=== PATIENT | male | born 1965 | race Caucasian/White ===

== ENCOUNTER 2017-01-13 15:12 | Emergency (ER) | payer OTHER ==
[~2017-01-13] VITALS: Ht 172.7 cm; Wt 89.5 kg
[2017-01-13 15:17] VITALS: Ht 172.7 cm; Wt 89.5 kg
--- NOTE | 2017-01-13 15:25 | ERA ---
ER Documentation Chief Complaint Date/Time DATE: 01/13/17 TIME: 15:25 Chief Complaint palpitations sent from pmd's office HPI The patient is a 52-year-old male, presenting to the ER because palpitation for 2 days. He stopped drinking about 2 days ago. He denies fever, chills, syncope , near syncope, neck pain, chest pain, abdominal pain, vomiting, dysuria, diarrhea. He went to see his doctor who sent him to the ER because of palpitation. He smokes and drinks denies illicit drug Past medical history: Hypertension, chronic low back pain, sleep apnea Past surgical history: None ROS All systems reviewed and are negative except as per history of present illness. Medications Home Meds No Active Prescriptions or Reported Meds Allergies Allergies: Coded Allergies: No Known Allergy (Unverified , 01/13/17) Physical Exam Vitals Vital Signs Date Time Temp Pulse Resp B/P Pulse Ox O2 Delivery O2 Flow Rate FiO2 01/13/17 15:44 Nasal Cannula 2 01/13/17 15: 99.5 161 24 153/92 98 Physical Exam Const: No acute distress. Head: Atraumatic. Eyes: Normal Conjunctiva. ENT: Normal External Ears, Nose and Mouth. Neck: Full range of motion. No meningismus. Resp: Clear to auscultation bilaterally. Cardio: Regular Tachycardic Abd: Soft, non distended, normal bowel sounds, non tender. Skin: No petechiae or rashes. Back: No midline or flank tenderness. Ext: No cyanosis, or edema. Neur: Awake and alert. No focal deficit Psych: Normal Mood and Affect. Result Diagram: 01/13/17 1530 01/13/17 1530 Results 24 hrs Laboratory Tests Test 01/13/17 15:30 01/13/17 17:20 White Blood Count 10.710^3/ul Red Blood Count 3.8710^6/ul Hemoglobin 15.8g/dl Hematocrit 44.8% Mean Corpuscular Volume 115.8fl Mean Corpuscular Hemoglobin 40.8pg Mean Corpuscular Hemoglobin Concent 35.3g/dl Red Cell Distribution Width 14.1% Platelet Count 82699^3/UL Mean Platelet Volume 10.7fl Neutrophils % 84.0% Lymphocytes % 9.0% Monocytes % 5.7% Eosinophils % 0.2% Basophils % 0.5% Nucleated Red Blood Cells % 0.2/100WBC Neutrophils # 9.010^3/ul Lymphocytes # 1.010^3/ul Monocytes # 0.610^3/ul Eosinophils # 0.010^3/ul Basophils # 0.110^3/ul Nucleated Red Blood Cells # 0.010^3/ul Prothrombin Time 13.5Sec Prothrombin Time Ratio 1.1 INR International Normalized Ratio 1.03 Activated Partial Thromboplast Time 29.3Sec Sodium Level 137mmol/L Potassium Level 4.1mmol/L Chloride Level 100mmol/L Carbon Dioxide Level 17mmol/L Anion Gap 24 Blood Urea Nitrogen 7mg/dl Creatinine 0.79mg/dl Glucose Level 110mg/dl Calcium Level 9.7mg/dl Magnesium Level 1.3mg/dl Total Bilirubin 1.2mg/dl Direct Bilirubin 0.10mg/dl Indirect Bilirubin 1.1mg/dl Aspartate Amino Transf (AST/SGOT) 109IU/L Alanine Aminotransferase (ALT/SGPT) 44IU/L Alkaline Phosphatase 158IU/L Troponin I < 0.012ng/ml Total Protein 8.8g/dl Albumin 4.8g/dl Globulin 4.00g/dl Albumin/Globulin Ratio 1.20 Lipase 379U/L Thyroid Stimulating Hormone (TSH) 5.570MIU/L Ethyl Alcohol Level < 10.0mg/dl Urine Opiates Screen Negative Urine Barbiturates Negative Urine Amphetamines Screen Negative Urine Benzodiazepines Screen Negative Urine Cocaine Screen Negative Urine Cannabinoids Negative Current Medications Medications (Trade) Dose Ordered Sig/Luis Route PRN Reason Start Time Stop Time Status Last Admin Dose Admin Lorazepam (Ativan) 1 mg ONCE ONCE IV 01/13/17 16:00 01/13/17 16:01 DC 01/13/17 16:13 Clonidine 0.2 mg 0.2 mg ONCE ONCE PO 01/13/17 16:00 01/13/17 16:01 DC 01/13/17 16:13 Magnesium Sulfate (Magnesium Sulfate 2 Gm/50 ml) 50 ml @ 25 mls/hr ONCE ONCE IVPB 01/13/17 17:00 01/13/17 18:59 DC 01/13/17 17:29 Procedures/[place] [id number] Radiology Main Line: [phone] DIAGNOSTIC IMAGING REPORT Patient: ENMANUEL ENAMORADO : 1965 Age: 52 Sex: M MR #: [id number] DOS: 01/13/17 1532 Ordering MD: SALLY SARAH MD Location: E/R Room/Bed: PROCEDURE: XR Chest. CLINICAL INDICATION: chest pain TECHNIQUE: Single frontal view of the chest was obtained COMPARISON: None FINDINGS: The heart and mediastinum are within normal limits. The lungs are clear. There is no pleural effusion or pneumothorax. RPTAT: AA IMPRESSION: No acute disease. .Tyler Martinez MD, MD Date Time Electronically viewed and signed by .Tyler Martinez MD, MD on 01/13/2017 16: 02 .S/ CC: SALLY SARAH MD EKG: At 1515 hrs. Read by emergency physician Rate/Rhythm: Sinus tachycardia 151 beats/min QRS, ST, T-waves: No ST elevation, no T inversion, Nonspecific ST abnormality Impression: Abnormal EKG EKG: At 1554 hour Read by emergency physician Rate/Rhythm: Sinus tachycardia 136 beats/min QRS, ST, T-waves: No ST elevation, no T inversion Impression: Abnormal EKG MEDICAL MAKING DECISION: The patient is a 52-year-old male, presenting with acute alcohol withdrawal, acute hypomagnesemia. He was treated with Ativan 1 mg IV and clonidine 0.2 mg p.o. for acute alcohol withdrawal, magnesium sulfate 2 g IV for acute hypomagnesemia with good response The differential diagnoses considered include but are not limited to asthma, COPD, pneumonia, pulmonary embolus, pleural effusion, congestive heart failure. Departure Diagnosis: Primary Impression: Alcohol withdrawal Additional Impression: Hypomagnesemia Condition: Stable Comments I discussed the findings with the patient. I discussed the patient with his physician Dr Gaitan at 6 pm. who was made aware of the lab, the treatment, the patient condition. The patient is admitttransfer via ambulance to [facility] SALLY SARAH MD Jan 13, 2017 15:25
[2017-01-13] MEDS ORDERED: LORAZEPAM 2 MG INJ IV ONE (16:00)
--- NOTE | 2017-01-13 16:02 | RADRPT ---
PROCEDURE: XR Chest. CLINICAL INDICATION: chest pain TECHNIQUE: Single frontal view of the chest was obtained COMPARISON: None FINDINGS: The heart and mediastinum are within normal limits. The lungs are clear. There is no pleural effusion or pneumothorax. RPTAT: AA IMPRESSION: No acute disease. .Tyler Martinez MD, Date Time Electronically viewed and signed by .Tyler Martinez MD, on 01/13/2017 16:02 .S/
[2017-01-13 16:07] LABS: BASOPHIL # 0.1 10^3/ul (0.0-0.1); BASOPHILS % 0.5 % (0.0-2.0); EOSINOPHILS % 0.2 % (0.0-7.0); HEMATOCRIT 44.8 % (42.0-52.0); HEMOGLOBIN 15.8 g/dl (14.0-18.0); MEAN CORPUSCULAR HEMOGLOBIN 40.8 pg (29.0-33.0); MEAN CORPUSCULAR HGB CONC 35.3 g/dl (32.0-37.0); MEAN CORPUSCULAR VOLUME 115.8 fl (82.0-101.0); MEAN PLATELET VOLUME 10.7 fl (7.4-10.4); MONOCYTE # 0.6 10^3/ul (0.3-0.9); MONOCYTES % 5.7 % (0.0-11.0); NUCLEATED RED BLOOD CELLS% 0.2 /100WBC (0.0-0.0); PLATELET COUNT 150 10^3/UL (140-415); RED BLOOD COUNT 3.87 10^6/ul (4.70-6.10); RED CELL DISTRIBUTION WIDTH 14.1 % (11.5-14.5); WHITE BLOOD COUNT 10.7 10^3/ul (4.8-10.8)
[2017-01-13 16:15] LABS: INR 1.03; PROTIME 13.5 Sec (12.2-14.2); PT RATIO 1.1
[2017-01-13 16:16] LABS: PARTIAL THROMBOPLASTIN TIME 29.3 Sec (25.0-35.0)
[2017-01-13 16:24] LABS: ALANINE AMINOTRANSFERASE 44 IU/L (13-69); ALBUMIN 4.8 g/dl (3.3-4.9); ALKALINE PHOSPHATASE 158 IU/L (42-121); ANION GAP 24 (8-16); ASPARTATE AMINO TRANSFERASE 109 IU/L (15-46); BILIRUBIN,INDIRECT 1.1 mg/dl (0-1.1); BILIRUBIN,TOTAL 1.2 mg/dl (0.2-1.3); BLOOD UREA NITROGEN 7 mg/dl (7-20); CALCIUM 9.7 mg/dl (8.4-10.2); CARBON DIOXIDE 17 mmol/L (21-31); CHLORIDE 100 mmol/L (97-110); CREATININE 0.79 mg/dl (0.61-1.24); ETHANOL < 10.0 mg/dl; GLUCOSE 110 mg/dl (70-220); MAGNESIUM 1.3 mg/dl (1.7-2.5); POTASSIUM 4.1 mmol/L (3.5-5.1); SODIUM 137 mmol/L (135-144); TOTAL PROTEIN 8.8 g/dl (6.1-8.1)
[2017-01-13 16:30] LABS: TROPONIN-I < 0.012 ng/ml (0.00-0.12)
[2017-01-13] MEDS ORDERED: MAGNESIUM SULFATE 2 GM/50 ML 50 ML IVPB ONE (17:00)
[2017-01-13 18:23] LABS: BARBITURATES Negative (NEGATIVE); BENZODIAZEPINES Negative (NEGATIVE); CANNABINOIDS Negative (NEGATIVE); COCAINE Negative (NEGATIVE); OPIATES Negative (NEGATIVE)
[2017-01-13 19:41] VITALS: BP 138/81; PULSE 111; RESP 24; TEMP 98.8
== END 2017-01-13 20:32 | disposition left against medical advice (07) ==
LOC: E/R 15:12
DX: F10.239 Alcohol dependence with withdrawal, unspecified (principal); E83.42 Hypomagnesemia; I10 Essential (primary) hypertension; F17.210 Nicotine dependence, cigarettes, uncomplicated; R07.9 Chest pain, unspecified
CPT/HCPCS: 71010; 80053; 80306; 80307; 83690; 83735; 84443; 84484; 85025; 85610; 85730; 93005; J2060; J3475; Z7610; 36415; 96374; 96375